=== PATIENT | female | born 1970 | race Two or more races ===

== ENCOUNTER 2024-04-23 19:37 | Emergency (ER) | payer BC ==
[~2024-04-23] VITALS: Ht 160 cm; Wt 53.4 kg
[2024-04-23] MEDS: FAMOTIDINE (10MG/ML) 2ML VL IV ONE (21:03)
[2024-04-23] MEDS: diphenhdrAMINE HCL 50 MG/1 ML VL IV ONE (21:03)
--- NOTE | 2024-04-23 21:05 | ED.PDOC ---
History of Present Illness HPI Comments 53 y/o, with a history of hypothyroidism, presents with c/o generalized rash with itchiness for 1x week, today. Patient endorses on onset of symptoms following recent left-knee surgical procedure that was performed 1x week ago. She comments no further additional recent events and having multiple prior left knee surgeries in the past w/o complications. Patient denies having any fever, chills, weakness, lightheadedness, shortness of breath, pain, or other associated symptoms or modifiers at this time. Chief Complaint: Allergic Reaction Time Seen by MD: 20:15 Reviewed Notes: Nurses Notes, Medications, Allergies Allergies: Coded Allergies: Prednisone (Verified Allergy, Unknown, 04/23/24) Information Source: Patient Mode of Arrival: Ambulatory Severity: Moderate Timing: Weeks Duration: Since onset Prehospital treatment: None Past Medical History PAST MEDICAL HISTORY: Thyroid (hypothyroidism ) Surgical History (Other): multiple left-knee surgeries, left shoulder surgery, gastric sleeve Integumetry: reports: rash (generalized with itchiness) All Other Systems: Reviewed and Negative (negative unless otherwise stated above or in HPI) Physical Exam General Appearance: No Apparent Distress, Normal HEENT: Normal ENT Inspection, Pharynx Normal, TMs Normal Neck: Full Range of Motion, Non-Tender, Normal, Normal Inspection Respiratory: Chest Non-Tender, Lungs Clear, No Accessory Muscle Use, No Respiratory Distress, Normal Breath Sounds, Other (airways open no stridor or wheezing) Cardiovascular: No Edema, No JVD, No Murmur, No Gallop, Normal Peripheral Pulses, Regular Rate/Rhythm Breast Exam: Deferred Gastrointestinal: No Organomegaly, Non Tender, No Pulsatile Mass, Normal Bowel Sounds, Soft Genitalia: Deferred Pelvic: Deferred Rectal: Deferred Extremities: No calf tenderness, Normal capillary refill, Normal inspection, Normal range of motion, Non-tender, No pedal edema Musculoskeletal : Apperance: Normal Neurologic: Alert, tavern keeper II-XII nml as Tested, No Motor Deficits, Normal Affect, Normal Mood, No Sensory Deficits Cerebellar Function: Normal Reflexes: Normal Skin: Dry, Normal Color, Rash (hives to face and bilatleral hands and legs), Warm Lymphatic: No Adenopathy Was a procedure done? Was a procedure done?: No Differential Dx Considerations may include: post-op complication, skin contact exposure, exposure to unknown allergen, dermatitis, cellulitis, anaphylaxis, eczema, allergic related urticaria, viral related urticaria, idiopathic urticaria, REVA inhibitor deficiency, idiopathic angioedema X-Ray, Labs, Meds, VS Vital Signs Date Time Temp Pulse Resp B/P (MAP) Pulse Ox O2 Delivery O2 Flow Rate FiO2 04/23/24 21:12 Room Air* 0 21 04/23/24 21:02 98.2 91 17 119/70 (86) 99 98.2 04/23/24 21:02 91 17 99 Room Air 04/23/24 19:50 20 Room Air 0 04/23/24 19:50 98.2 64 18 101/63 (76) 100 Current Medications Medications (Trade) Dose Ordered Sig/Han Route Start Time Stop Time Status Last Admin Famotidine (Pepcid Injection) 20 mg ONCE ONCE IV 04/23/24 20:30 04/23/24 20:31 DC 04/23/24 21:03 Diphenhydramine HCl (Benadryl Injection) 50 mg ONCE ONCE IV 04/23/24 20:30 04/23/24 20:31 DC 04/23/24 21:03 Dexamethasone Sodium Phosphate (Decadron Injection) 4 mg ONCE ONCE IV 04/23/24 21:30 04/23/24 21:37 DC 04/23/24 21:43 Time of 1ST Reevaluation: 20:45 Reevaluation 1ST: Unchanged Time of 2ND Reevaluation: 21:32 Reevaluation 2ND: Improved Time of 3RD Reevaluation: 21:53 Reevaluation 3RD: Resolved Patient Education/Counseling: Diagnosis, Treatment, Prognosis, Need For Follow Up Family Education/Counseling: Diagnosis, Treatment, Prognosis, Need For Follow Up, No Family Present Additional Information pt reports that she take inhaled steroids without reactions, but 20 years ago, she had hives once and steroid was one possible trigger, but she does not know what truly caused the hives. she is requesting to try steroid here. since the possible allergy is not clearly identified, and steroid was loosely connected, and pt is here to be observed, i will order a dose of decadron and observe for response Departure 1 Departure Time of Disposition: 21:53 Impression: Primary Impression: Urticaria Disposition: 01 HOME / SELF CARE / HOMELESS Condition: Good e-Prescriptions Famotidine (PEPCID TABLET) 20 Mg Tb 1 TAB PO BID, #60 TAB 5 Refills Prov: MACKENZIE MONTESINOS MD 04/23/24 Diphenhydramine Hcl (Benadryl Allergy) 25 Mg Cap 50 MG PO Q6HP PRN for 3 Days, #24 CAP Prov: MACKENZIE MONTESINOS MD 04/23/24 Dexamethasone (Dexamethasone 6-Day Dose) 1.5 Mg Tab 4 TAB PO ONCE for 1 Day, #1 TAB Prov: MACKENZIE MONTESINOS MD 04/23/24 Ketorolac Tromethamine (Ketorolac Tromethamine) 10 Mg Tab 1 TAB PO TID, #15 TAB Prov: MACKENZIE MONTESINOS MD 04/23/24 Discharged With: Self Critical Care Note Critical Care Time?: No Stability Stability form required: No Heart Score Heart Score: Heart Score Response (Comments) Value History N/A 0 EKG N/A 0 Age N/A 0 Risk Factors N/A 0 Troponin N/A 0 Total 0 I personally scribed for MACKENZIE MONTESINOS MD ([email or web address]) on 04/23/24 at 21:05. Electronically submitted by Erich Bah ([email or web address]). MACKENZIE MONTESINOS MD Apr 23, 2024 21:05
[2024-04-23] MEDS: DexAMETHasone SOD PHOS 4 MG/1ML SDV INJ IV ONE (21:43)
[2024-04-23] MEDS ORDERED: DIPH25CA66 PO (22:00)
[2024-04-23] MEDS ORDERED: DEXA1.5T7 PO (22:00)
[2024-04-23] MEDS ORDERED: FAMO20TA10 PO (22:00)
[2024-04-23] MEDS ORDERED: KETO10TA PO (22:00)
[2024-04-23] MEDS: KETOROLAC TROMETH 30 MG/ML 1ML VIAL IV ONE (22:10)
[2024-04-23 22:32] VITALS: BP 122/71; PULSE 84; RESP 16; TEMP 98; O2SAT 98
== END 2024-04-23 22:35 | disposition home or self-care (01) ==
LOC: ER 19:37
DX: L50.9 Urticaria, unspecified (principal); E03.9 Hypothyroidism, unspecified; Z88.8 Allergy status to other drugs, medicaments and biological substances; Z98.890 Other specified postprocedural states
CPT/HCPCS: 96374; 96375; 99284; J1200; J1885; J3490; J1100